=== PATIENT | female | born 1945 | race Caucasian/White ===

== ENCOUNTER 2017-02-15 09:57 | Emergency (ER) | payer MEDICARE ==
[2017-02-15 11:11] VITALS: BP 175/91
--- NOTE | 2017-02-15 12:16 | UC ---
Lower Extremity/Ankle HPI - HPI Summary HPI Summary: YESTERDAY NOTICED REDNESS, SWELLING AND PAIN RIGHT GREAT TOE AROUND NAIL. HAS A SMALL CUT AT CUTICLE. NO TRAUMA. - History of Current Complaint Chief Complaint: UCLowerExtremity Stated Complaint: FOOT COMPLAINT Time Seen by Provider: 02/15/17 12:01 Hx Obtained From: Patient Onset/Duration: Gradual Onset, Lasting Hours, Still Present Severity Initially: Mild Severity Currently: Mild Pain Intensity: 2 Pain Scale Used: 0-10 Numeric Aggravating Factor(s): Standing, Ambulation Alleviating Factor(s): Rest Able to Bear Weight: Yes - Allergies/Home Medications Allergies/Adverse Reactions: Allergies Allergy/AdvReac Type Severity Reaction Status Date / Time No Known Allergies Allergy Verified 02/15/17 11:11 Home Medications: Home Medications Levothyroxine TAB* [Synthroid TAB*] 50 mcg PO DAILY 02/15/17 [History Confirmed 02/15/17] PMH/Surg Hx/FS Hx/Imm Hx Endocrine History Of: Reports: Thyroid Disease - HYPOTHYROID, Hypothyroidism Cancer History Of: Denies: Breast Cancer - Surgical History Surgical History: None - Family History Known Family History: Positive: Hypertension - Social History Alcohol Use: Rare Substance Use Type: None Smoking Status (MU): Never Smoked Tobacco Review of Systems Constitutional: Negative Skin: Other - redness, swelling right great toe Respiratory: Negative Cardiovascular: Negative Gastrointestinal: Negative Musculoskeletal: Edema All Other Systems Reviewed And Are Negative: Yes Physical Exam Triage Information Reviewed: Yes Appearance: Well-Appearing, No Pain Distress, Well-Nourished Vital Signs: Initial Vital Signs Temp 97.9 F 02/15/17 11:07 Pulse 84 02/15/17 11:07 Resp 16 02/15/17 11:07 BP 175/91 02/15/17 11:07 Pulse Ox 99 02/15/17 11:07 Vital Signs Reviewed: Yes Eyes: Positive: Conjunctiva Clear ENT: Positive: Hearing grossly normal Neck: Positive: Supple Respiratory: Positive: No respiratory distress, No accessory muscle use Cardiovascular: Positive: Pulses Normal Abdomen Description: Positive: Soft Musculoskeletal: Positive: Edema @ - RIGHT GREAT TOE, Other: - TTP RIGHT GREAT TOE Neurological: Positive: Alert Psychological: Positive: Age Appropriate Behavior Skin: Positive: Other - ERYTHEMA, SWELLING AROUND NAILBED RIGHT GREAT TOE. SMALL ABRASION AT CUTICLE. Lower Extremity Course/Dx - Differential Dx/Diagnosis Provider Diagnoses: 1. PARONYCHIA RIGHT GREAT TOE. 2. ELEVATED BP - NO DIAGNOSIS OF HTN Discharge - Discharge Plan Condition: Stable Disposition: HOME Prescriptions: Cephalexin CAP* [Keflex 500 CAP*] 1,000 mg PO BID #40 cap Patient Education Materials: Marcia (ED) Referrals: Adan Cooper MD [Primary Care Provider] - (FOLLOW-UP WITHIN 4 WEEKS FOR RE- EVALUATION OF YOUR BP) Additional Instructions: HOT SOAKS AT LEAST 4 TIMES DAILY YOUR BLOOD PRESSURE WAS ELEVATED TODAY (175/91). PLEASE BE SURE TO FOLLOW-UP WITH YOUR PCP WITHIN 4 WEEKS FOR RE-EVALUATION.
== END 2017-02-15 12:23 | disposition home or self-care (01) ==
LOC: UCEAST 09:57
DX: L03.031 Cellulitis of right toe (principal); R03.0 Elevated blood-pressure reading, without diagnosis of hypertension; E03.9 Hypothyroidism, unspecified
CPT/HCPCS: 99202; G0463

== ENCOUNTER 2019-06-25 07:01 | Emergency (ER) | payer MEDICARE ==
[2019-06-25 07:14] VITALS: BP 166/79
--- NOTE | 2019-06-25 07:27 | UC ---
Ear Complaint HPI - HPI Summary HPI Summary: 73 yo female with 2 day hx of runny nose and post nasal drip now with mild right ear discomfort no fever or chills no n/v/d no cp or sob - History of Current Complaint Chief Complaint: UCEar Stated Complaint: SINUS ISSUE EAR PAIN Time Seen by Provider: 06/25/19 07:19 Hx Obtained From: Patient Onset/Duration: Gradual Onset, Lasting Days Severity Initially: Mild Severity Currently: Mild Pain Intensity: 2 Pain Scale Used: 0-10 Numeric Aggravating Factors: Nothing Alleviating Factors: Nothing Associated Signs/Symptoms: Positive: Hearing Loss, URI Symptoms Related History: Other (Noted In Comments) - hx cerumen impaction - Allergies/Home Medications Allergies/Adverse Reactions: Allergies Allergy/AdvReac Type Severity Reaction Status Date / Time No Known Allergies Allergy Verified 06/25/19 07:13 Home Medications: Home Medications Ibuprofen 400 mg PO ONCE PRN 06/25/19 [History Confirmed 06/25/19] Pseudoephedrine HCl [Sudafed 12 Hour] 1 tab PO ONCE PRN 06/25/19 [History Confirmed 06/25/19] Statin 1 tab PO DAILY 06/25/19 [History Confirmed 06/25/19] PMH/Surg Hx/FS Hx/Imm Hx Previously Healthy: Yes Endocrine History: Hypothyroidism - Surgical History Surgical History: None - Family History Known Family History: Positive: Hypertension, Non-Contributory - Social History Alcohol Use: Rare Substance Use Type: None Smoking Status (MU): Never Smoked Tobacco Review of Systems All Other Systems Reviewed And Are Negative: Yes Constitutional: Positive: Negative Skin: Positive: Negative Eyes: Positive: Negative ENT: Positive: Ear Ache, Nasal Discharge Respiratory: Positive: Negative Cardiovascular: Positive: Negative Gastrointestinal: Positive: Negative Genitourinary: Positive: Negative Motor: Positive: Negative Neurovascular: Positive: Negative Musculoskeletal: Positive: Negative Neurological: Positive: Negative Psychological: Positive: Negative Physical Exam Triage Information Reviewed: Yes Appearance: Well-Appearing, No Pain Distress, Well-Nourished Vital Signs: Initial Vital Signs Temp 97.9 F 06/25/19 07:09 Pulse 86 06/25/19 07:09 Resp 18 06/25/19 07:09 BP 166/79 06/25/19 07:09 Pulse Ox 98 06/25/19 07:09 Vital Signs Reviewed: Yes Eyes: Positive: Conjunctiva Clear ENT: Positive: Nasal congestion, Nasal drainage, TMs normal - Left normal, right unable to visualize due to cerumen. Negative: Hearing grossly normal, Tonsillar swelling, Tonsillar exudate, Dental tenderness, Sinus tenderness, Uvula midline Dental Exam: Normal Neck: Positive: Supple, Nontender, No Lymphadenopathy Respiratory: Positive: Lungs clear, Normal breath sounds, No respiratory distress, No accessory muscle use Cardiovascular: Positive: RRR, No Murmur Musculoskeletal: Positive: No Edema Neurological: Positive: Alert Psychological Exam: Normal Skin Exam: Normal Ear Complaint Course/Dx - Course Course Of Treatment: after flush R TM bulging but note red - Differential Dx/Diagnosis Provider Diagnosis: Rhinitis, Right serous otitis media Discharge ED - Sign-Out/Discharge Documenting (check all that apply): Patient Departure All imaging exams completed and their final reports reviewed: No Studies - Discharge Plan Condition: Stable Disposition: HOME Prescriptions: Fluticasone NASAL SPRAY 50MCG* [Flonase NASAL SPRAY 50MCG*] 2 spray BOTH NARES BID PRN #1 btl PRN Reason: Congestion Patient Education Materials: Serous Otitis Media (ED) Referrals: Adan Cooper MD [Primary Care Provider] - 1 Week (if not improved) - Billing Disposition and Condition Condition: STABLE Disposition: Home
== END 2019-06-25 08:06 | disposition home or self-care (01) ==
LOC: UCEAST 07:01
DX: J31.0 Chronic rhinitis (principal); H66.91 Otitis media, unspecified, right ear; E03.9 Hypothyroidism, unspecified
CPT/HCPCS: 99213; G0463